=== PATIENT | male | born 1965 | race Caucasian/White ===

== ENCOUNTER 2018-02-19 09:00 | Emergency (ER) | payer BC ==
[~2018-02-19] VITALS: Ht 182.9 cm; Wt 85.5 kg
[2018-02-19 09:05] VITALS: BP 154/102
[2018-02-19] MEDS ORDERED: LIDOCAINE-MPF 1%, 5ML ONE (09:14)
[2018-02-19] MEDS ORDERED: LOSA50TA7 PO (09:26)
[2018-02-19] MEDS ORDERED: BACITRACIN ZINC OINT 500U/GM, 0.9 GM ONE (09:57)
== END 2018-02-19 10:13 | disposition home or self-care (01) ==
LOC: ED 10:00
DX: S61.012A Laceration without foreign body of left thumb without damage to nail, initial encounter (principal); I10 Essential (primary) hypertension; W25.XXXA Contact with sharp glass, initial encounter; Y93.89 Activity, other specified; Y92.009 Unspecified place in unspecified non-institutional (private) residence as the place of occurrence of the external cause; Y99.8 Other external cause status
CPT/HCPCS: 12001; 99283